=== PATIENT | female | born 1940 | race Caucasian/White ===

== ENCOUNTER → 2016-03-01 | Outpatient (CLI) | payer MEDICARE, BC ==
--- NOTE | 2016-03-01 15:57 | CARDIOVASCULAR REPORT ---
"Venous Exam Indications: 729.5 Pain in limb. IMPRESSIONS 1. There is no evidence of significant Reflux. 2. No evidence of deep or superficial vein thrombosis involving the right lower extremity Right lower extremity venous duplex evaluation. Doppler flow study including spectral analysis, color and johnston scale imaging. Location: Vascular laboratory. Patient status: Outpatient. Tables: Venous flow and imaging: + +-------+ + |Location |Overall|Flow properties | + +-------+ + |Right common femoral |Patent |Normal phasicity; spontaneous; | | | |normal augmentation; compressible| + +-------+ + |Right saphenofemoral junction|Patent |Compressible | + +-------+ + |Right profunda femoral |Patent |Compressible | + +-------+ + |Right femoral |Patent |Normal phasicity; spontaneous; | | | |normal augmentation; compressible| + +-------+ + |Right greater saphenous |Patent |Normal phasicity; spontaneous; | | | |normal augmentation; compressible| + +-------+ + |Right popliteal |Patent |Normal phasicity; spontaneous; | | | |normal augmentation; compressible| + +-------+ + |Right posterior tibial |Patent |Compressible | + +-------+ + |Right peroneal |Patent |Compressible | + +-------+ + |Right gastrocnemius |Patent |Compressible | + +-------+ + |Right soleal |Patent |Compressible | + +-------+ + (Report amended ) Electronically signed by: Juan White [id number]"
--- NOTE | 2016-03-01 16:46 | RADIOLOGY REPORT PS360 ---
LOWER LEG-RT ORDERING PHYSICIAN : KODY MOSQUEDA PATIENT AGE: 75 years GENDER: Female INDICATION: PAIN pain since last Fell Tuesday night. Right Lower leg pain TECHNIQUE: AP lateral right lower leg radiograph COMPARISON: None FINDINGS The tibia and fibula are intact. No fracture. No lesion. No radiopaque foreign bodies. Bones well mineralized. 2 views of the right knee & right ankle are included on this lower leg study and grossly unremarkable. However if there is specific pain either of these joints and follow-up dedicated study of such would be warranted. IMPRESSION: Right lower leg unremarkable Tibia and fibula are intact. No fracture
== END ==
LOC: RAD 15:33
DX: M79.604 Pain in right leg (principal); R60.0 Localized edema